=== PATIENT | female | born 2000 | race Caucasian/White ===

== ENCOUNTER 2024-05-14 17:34 | Emergency (ER) | payer OTHER, SELFPAY ==
[2024-05-14 18:17] LABS: #Basophils 0.04 10x3/uL (0.0-0.2); %Basophils 0.4 % (0.0-1.0); %Eosinophils 0.5 % (0.0-10.0); %Lymphocytes 16.6 % (21.0-51.0); %Monocytes 7.5 % (0.0-10.0); %Neutrophils 74.7 % (42.0-75.0); Hematocrit 45.5 % (36.0-47.0); Hemoglobin 14.7 g/dL (12.0-16.0); Mean Corpuscular HGB CONC 32.3 g/dL (32.0-36.0); Mean Corpuscular Hemoglobin 28.1 pg (27.0-31.0); Platelet Count 350 10x3/uL (130-400); RBC Distribution Width 13.6 % (11.5-14.5); Red Blood Cell (RBC) Count 5.23 mill/uL (4.20-5.40)
[2024-05-14 18:24] LABS: BHCG - Serum Negative (NEGATIVE); Pregs Control Background? CLEAR/WHITE (CLR/WHITE); Pregs Control Bar Appear? YES (CONTROL BAR)
[2024-05-14 18:30] LABS: Anion Gap 12 mmol/L (10-20); BUN (Urea Nitrogen) 13 mg/dL (7.0-18.7); Calc. Creatinine Clearance 0 mL/min (70-130); Carbon Dioxide 28 mmol/L (22-29); Chloride 104 mmol/L (98-107); Potassium 3.8 mmol/L (3.5-5.1); Sodium 140 mmol/L (136-145)
[2024-05-14 18:31] LABS: ALT (SGPT) 25 U/L (8-55); AST (SGOT) 29 U/L (5-34); Albumin 3.8 g/dL (3.5-5.0); Alkaline Phosphatase 118 U/L (40-110); Bilirubin, Total 0.6 mg/dL (0.2-1.2); Calcium 9.9 mg/dL (7.8-10.44); Estimated GFR 109; Globulin 3.9 g/dL (2.4-3.5); Glucose 105 mg/dL (70-105); Lipase 11 U/L (8-78); Protein, Total 7.7 g/dL (6.0-8.3)
[2024-05-14] MEDS ORDERED: Morphine 4 MG/ML VIAL ONE (18:52)
[2024-05-14] MEDS ORDERED: Ondansetron PF 4 MG/2 ML Vial ONE (19:14)
[2024-05-14 19:27] LABS: Bacteria/HPF None Seen HPF (None Seen); Bilirubin Negative (Negative); Blood, Urine 3+ (Negative); CAUTI Indications for Culture Immunosuppressed; Clarity Turbid (Clear); Glucose, Urine (Dipstick) Normal (Negative); Ketone, Urine Negative (Negative); Leukocyte 250 Leu/uL (Negative); Nitrite Negative (Negative); Protein, Urine (Dipstick) 50 mg/dL (Neg-Trace); RBC/HPF Greater than 50 HPF (0-3); Specific Gravity, Urine 1.023 (1.002-1.036); Urobilinogen Normal mg/dL (Less than 2); WBC/HPF Greater than 50 HPF (0-3); pH, Urine 7.5 (5.0-9.0)
[2024-05-14 19:28] LABS: Urine Culture Reflex Yes Yes
[2024-05-14] MEDS ORDERED: Sodium Chloride 0.9% 100 ML ONE (20:03)
[2024-05-14] MEDS ORDERED: cefTRIAXone (ROCEPHIN) 1 GM VIAL ONE (20:03)
== END 2024-05-14 21:05 | disposition home or self-care (01) ==
LOC: ERS 17:34
DX: N13.6 Pyonephrosis (principal); F17.290 Nicotine dependence, other tobacco product, uncomplicated; Z55.6 Problems related to health literacy
CPT/HCPCS: 36415; 74177; 76856; 80053; 81001; 83690; 84703; 85025; 87077; 87086; 87186; 96365; 96375; J0696; J2272; J2405

== ENCOUNTER 2024-07-24 01:42 | Emergency (ER) | payer OTHER ==
[2024-07-24] MEDS ORDERED: levETIRAcetam 500 MG (5 mL) VIAL ONE (02:14)
[2024-07-24 02:15] LABS: #Basophils 0.04 10x3/uL (0.0-0.2); #Eosinophils Less than 0.03 10x3/uL (0.0-0.7); %Basophils 0.4 % (0.0-1.0); %Lymphocytes 30.5 % (21.0-51.0); %Monocytes 6.2 % (0.0-10.0); %Neutrophils 62.5 % (42.0-75.0); Hematocrit 39.8 % (36.0-47.0); Hemoglobin 13.2 g/dL (12.0-16.0); Mean Corpuscular HGB CONC 33.2 g/dL (32.0-36.0); Mean Corpuscular Hemoglobin 28.1 pg (27.0-31.0); Mean Corpuscular Volume 84.7 fL (78.0-98.0); Mean Platelet Volume 8.3 fL (7.4-10.4); Platelet Count 340 10x3/uL (130-400); RBC Distribution Width 14.6 % (11.5-14.5)
[2024-07-24 02:34] LABS: ALT (SGPT) 14 U/L (8-55); AST (SGOT) 21 U/L (5-34); Albumin 3.9 g/dL (3.5-5.0); Alkaline Phosphatase 81 U/L (40-110); Anion Gap 20 mmol/L (10-20); BUN (Urea Nitrogen) 13 mg/dL (7.0-18.7); Bilirubin, Total 0.2 mg/dL (0.2-1.2); Calc. Creatinine Clearance 0 mL/min (70-130); Calcium 8.7 mg/dL (7.8-10.44); Carbon Dioxide 21 mmol/L (22-29); Chloride 106 mmol/L (98-107); Estimated GFR 116; Globulin 3.2 g/dL (2.4-3.5); Glucose 111 mg/dL (70-105); Potassium 3.5 mmol/L (3.5-5.1); Protein, Total 7.1 g/dL (6.0-8.3); Sodium 143 mmol/L (136-145)
[2024-07-24] MEDS ORDERED: Lorazepam 2 MG/ML VIAL ONE (03:04)
[2024-07-24 03:55] LABS: Acetaminophen Less than 10 mcg/mL (Less than 10); Salicylate Less than 8.0 mg/dL (Less than 8.0)
[2024-07-24 09:02] LABS: Bilirubin Negative (Negative); Blood, Urine Negative (Negative); CAUTI Indications for Culture Dysuria,urgency,freq; Clarity Clear (Clear); Glucose, Urine (Dipstick) Normal (Negative); Ketone, Urine Negative (Negative); Leukocyte Negative Leu/uL (Negative); Nitrite Negative (Negative); Protein, Urine (Dipstick) Negative (Neg-Trace); RBC/HPF 0-3 HPF (0-3); Specific Gravity, Urine 1.015 (1.002-1.036); Squamous Epithelial 0-3 HPF (0-3); Urobilinogen Normal mg/dL (Less than 2)
[2024-07-24 09:08] LABS: Amphetamine Not Detected (NotDetected); Barbiturates Screen Not Detected (NotDetected); Benzodiazepine Screen Detected (NotDetected); Cocaine Metabolite Screen Not Detected (NotDetected); Methadone Not Detected (NotDetected); Methamphetamine Not Detected (NotDetected); Opiate Screen Not Detected (NotDetected); Oxycodone Screen Not Detected (NotDetected); Phencyclidine (PCP) Not Detected (NotDetected); THC/Cannabinoid Screen Detected (NotDetected); Tricyclic Screen Not Detected (NotDetected)
[2024-07-24 09:09] LABS: Bacteria/HPF 1+ HPF (None Seen)
[2024-07-24 09:10] LABS: Urine Culture Reflex No No
[2024-07-24 09:17] LABS: Pregnancy Test - Urine (BHCG) Negative (Negative); Pregu Control Background? CLEAR/WHITE (CLR/WHITE); Pregu Control Bar Appear? YES (CONTROL BAR); Specific Gravity 1.015 (1.002-1.036)
== END 2024-07-24 10:30 | disposition home or self-care (01) ==
LOC: ERS 01:42
DX: G40.909 Epilepsy, unspecified, not intractable, without status epilepticus (principal); F10.129 Alcohol abuse with intoxication, unspecified; R82.71 Bacteriuria; Z55.6 Problems related to health literacy; Y90.8 Blood alcohol level of 240 mg/100 ml or more
CPT/HCPCS: 36415; 80053; 80306; 80307; 81001; 81025; 85025; 93005; 96374; 96375; J1953; J2060